=== PATIENT | male | born 1965 | race American Indian/Alaskan Native ===

== ENCOUNTER 2017-05-03 07:18 | Inpatient (IN) | payer BC ==
[2017-05-02 14:51] VITALS: BMI 37.8
[2017-05-03] MEDS ORDERED: Propofol 10 mg/ml Inj (20 ML) ONE ×2 (08:03→11:43)
[2017-05-03] MEDS ORDERED: Midazolam 2 MG/2 ML VIAL ONE (08:03)
[2017-05-03] MEDS ORDERED: ePHEDrine 50 mg/ml Inj ONE (08:04)
[2017-05-03] MEDS ORDERED: Rocuronium 10 mg/ml (5 ml) ONE ×2 (08:04→10:55)
[2017-05-03] MEDS ORDERED: Succinylcholine 200 mg/10 ml Inj IV ONE (08:04)
[2017-05-03] MEDS ORDERED: Lidocaine 1% Inj (20ml) ONE (08:16)
[2017-05-03] MEDS ORDERED: Sevoflurane - Inhalation Anesthetic Liq (250 ml) ONE (08:16)
[2017-05-03] MEDS ORDERED: Bupivacaine 0.5% Inj(30mL) ONE (08:16)
[2017-05-03] MEDS ORDERED: Morphine 1 mg/ml preservative-free Inj(Duramorph) ONE ×2 (08:28→09:11)
[2017-05-03] MEDS ORDERED: Sodium Chloride 0.9% 0 ML IV ONE (08:29)
[2017-05-03] MEDS ORDERED: Absorbable Gelatin Sponge Size 100 ONE (08:29)
[2017-05-03] MEDS ORDERED: EPINEPHrine 1 mg/ml (1:1000) Inj ONE (08:29)
[2017-05-03] MEDS ORDERED: Lactated Ringer's 1,000 ML IV ONE (09:12)
[2017-05-03] MEDS ORDERED: Desflurane Inhalation Anesthetic Liq (240 ml) ONE (10:08)
[2017-05-03] MEDS ORDERED: Ketamine 50 mg/ml Inj (10 ml) ONE (10:32)
[2017-05-03] MEDS: Sodium Chloride 0.9% 1,000 ML IV ONE ×4 (12:00→18:31)
[2017-05-03] MEDS ORDERED: Sodium Chloride 0.9% 1,000 ML IV ONE ×18 (12:00→13:00)
[2017-05-03] MEDS ORDERED: Neostigmine Methylsulfate 3mg/3ml Syringe IV ONE (12:43)
[2017-05-03] MEDS ORDERED: Neostigmine Methylsulfate 2 MG/2 ML ML IV ONE (12:43)
[2017-05-03] MEDS ORDERED: HYDROmorphone 0.5 mg/0.5 ml ISec ONE (13:49)
[2017-05-03] MEDS ORDERED: Naloxone 0.4 mg/ml Inj (Adult) IVP PRN (13:54)
[2017-05-03] MEDS: HYDROmorphone 0.5 mg/0.5 ml ISec IVP PRN ×5 (13:58→14:45)
--- NOTE | 2017-05-03 15:36 | PCM.SURG1 ---
Surgeon's Initial Post Op Note - Surgeon's Notes Surgeon: Myles Li MD [place] [employer] Agent: TONI [place] Type of Anesthesia: General Endo, Spinal Pre-Operative Diagnosis: Right Hip Osteoarthritis Operative Findings: See op report Post-Operative Diagnosis: Same as pre-op dx Operation Performed: Right Robotic Assisted Total Hip Replacement Specimen/Specimens Removed: Right Hip Femoral head and soft tissue Estimated Blood Loss: EBL {In ML}: 900 Date of Surgery/Procedure: 05/03/17 Time of Surgery/Procedure: 09:30
[2017-05-03] MEDS ORDERED: Oxycodone/Acetaminophen 5/325 mg Tab PO PRN (15:43)
[2017-05-03] MEDS ORDERED: Magnesium Hydroxide Susp 30 ml UD PO PRN (15:46)
--- NOTE | 2017-05-03 16:16 | RAD ---
PROCEDURE: Right Hip Radiographs. HISTORY: post op COMPARISON: Comparison is made to the previous study dated 04/15/2017 FINDINGS: BONES: Status post right hip arthroplasty. The hardware are seen at appropriate position. No evidence of acute fracture or dislocation. JOINTS: Normal. SOFT TISSUES: Normal. OTHER FINDINGS: None. IMPRESSION: Status post right hip arthroplasty
--- NOTE | 2017-05-03 16:46 | OP ---
PROCEDURE DATE: 05/03/2017 ATTENDING PHYSICIAN: Myles Li MD DINKEY OPERATOR: RODY [place] PREOPERATIVE DIAGNOSIS: Right hip osteoarthritis. POSTOPERATIVE DIAGNOSIS: Right hip osteoarthritis. PROCEDURE: Right hip robotic assisted total replacement. ANESTHESIA TYPE: General and spinal. ESTIMATED BLOOD LOSS: 600 mL. IMPLANT SIZES: Yareli, 54 mm cup with a 36 mm neutral liner, size 5 stem with high offset, size 36 mm ceramic head with 0 neck length. COMPLICATIONS: None. HISTORY OF PRESENT ILLNESS: The patient is a 51-year-old male with progressive right hip pain. The x-rays had shown an advanced osteoarthritis with multiple osteophyte formation. I had a detailed discussion with the patient reviewing his history and physical exam and x-ray findings and recommended total hip replacement. I reviewed the risks and benefits of the surgery with the patient in detail. The risks included, but not limited to, bleeding, infection, nerve and vessel damage, continued pain, instability, iatrogenic fracture, dislocations, among others. The patient fully understood the risks and benefits and opted to proceed. DESCRIPTION OF PROCEDURE: On the day of the surgery, the patient was admitted to preop holding area. A laterality sheet was completed confirming the patient ' right hip to be the correct operative site. The patient underwent general with spinal anesthesia. He was given 2 grams of IV Ancef. Afterwards, he was secured on an operating room table in the right lateral decubitus position. The right hip was draped and prepped in a standard sterile manner. First, a timeout was completed confirming the patient's right hip to be the correct operative site. First, we proceeded with the placement of 2 iliac crest pins for registration of the robot. Then, we utilized a standard posterolateral approach using a 10 blade, an incision was made. IT band and fascia was identified and dissected in line with the fibers of Gleuteus sara. The hip was identified. Proper marking was made for the robot. Afterwards, the hip was dislocated. The proposed neck cut was made. The acetabulum was exposed and acetabulum cup was reamed sequentially up to 54 mm using robotic assistance. A multi-hole cup was impacted into the acetabulum socket using the proper positioning and 2 screws were placed for stability. Then afterward, the lining, a 36 mm liner, was impacted. Next, attention was given to the femoral stem. The femoral canal was sequentially broached until a size 5 trial. We placed a high offset neck with a 36 mm standard head. The hip was dislocated and taken through the range of motion and was found to be stable throughout the extreme range of motion without any stability. Next, the hip was dislocated. The trial implants were removed and a Yareli Accolade size 5 stem with high offset was impacted into the femoral canal. Next, a 36 mm ceramic head with 0 neck length was secured onto the trunnion. The hip was relocated and was taken through range of motion, was found to be adequate leg length and stability. Finally, the hip was irrigated using the antibiotic solution and 2 drill holes were made into the greater trochanter to secure the short external rotators. The wound was copiously irrigated. The IT fascia was closed. The skin was brought together using Vicryl sutures. The skin was closed using cedric. Sterile dressing was applied. The patient's postoperative precautions included posterior hip precautions with weightbearing as tolerated and there were no complications of the surgery. Bridget Ramey is a certified physician assistant elementary teacher who was present for the entirety of the case as his participation was crucial in patient positioning during surgery, retraction of critical neurovascular structures and she also aided in proper placement of the implant and successful completion of the surgery. Myles Li MD cc: [id number] TT: 05/03/2017 16:46:09 demond VALENZUELA
[2017-05-03] MEDS ORDERED: ceFAZolin 1 GM in Sodium Chloride 0.9% 100 ML IVPB ONE (17:30)
[2017-05-03] MEDS: oxyCODONE 10 mg ER Tab (oxyCONTIN) PO SCH (22:29)
[2017-05-04] MEDS ORDERED: ceFAZolin 1 GM in Sodium Chloride 0.9% 100 ML IVPB ONE (01:30)
[2017-05-04 06:57] LABS: BASO % 0.2 % (0.0-2.0); HEMATOCRIT 29.5 % (35.0-51.0); LYMPH # 1.5 K/uL (1.0-4.3); LYMPH % 16.8 % (20.0-40.0); MEAN CELL VOLUME 88.5 fl (80.0-94.0); MEAN CORPUSCULAR HEMOGLOBIN 28.7 pg (27.0-31.0); MEAN CORPUSCULAR HGB CONC 32.4 g/dL (33.0-37.0); MEAN PLATELET VOLUME 10.9 fl (7.2-11.7); MONO % 11.8 % (0.0-10.0); NEUT # 6.2 K/uL (1.8-7.0); NEUT % 71.2 % (50.0-75.0); WHITE BLOOD COUNT 8.7 K/uL (4.8-10.8)
[2017-05-04 07:53] LABS: BLOOD UREA NITROGEN 17 mg/dl (9-20); CALCIUM 7.3 mg/dL (8.4-10.2); CARBON DIOXIDE 29 mmol/L (22-30); CHLORIDE 101 mmol/L (98-107); GFR AFRICAN-AMERICAN > 60; GLUCOSE,RANDOM 97 mg/dL (75-110); POTASSIUM 3.8 MMOL/L (3.6-5.0); SODIUM 137 mmol/l (132-148)
--- NOTE | 2017-05-04 08:58 | CP.PCM.PN ---
Subjective - Date & Time of Evaluation Date of Evaluation: 05/04/17 Time of Evaluation: 08:40 - Subjective Subjective: S/P RTHR POD#1 Pt seen and examined at bedside, comfortable in bed Pt c/o mod right hip pain, currently well controlled with SENIOR CYTOGENETICS LABORATORY DIRECTOR pump Pt denies any SOB, chest pain, dizziness, dyspnea, numbness/tingling to RLE Objective - Vital Signs/Intake and Output Vital Signs (last 24 hours): Temp Pulse Resp BP Pulse Ox 99.5 F 83 20 95/63 L 99 05/04/17 07:57 05/04/17 07:57 05/04/17 07:57 05/04/17 07:57 05/04/17 07:57 - Medications Medications: Current Medications Celecoxib (Celebrex) 200 mg PO Q12 [facility] Last Admin: 05/04/17 08:39 Dose: 200 mg Docusate Sodium (Colace) 100 mg PO TID [facility] Last Admin: 05/04/17 08:40 Dose: 100 mg Enoxaparin Sodium (Lovenox) 30 mg SC Q12 [facility] PRN Reason: Protocol Famotidine (Pepcid) 20 mg PO BID [facility] Last Admin: 05/04/17 08:39 Dose: 20 mg Hydromorphone HCl (Dilaudid 0.2 Mg/Ml [employer]) 0 mg IV PRN PRN; Protocol PRN Reason: Pain, severe (8-10) Last Admin: 05/04/17 08:35 Dose: 6 mg Ketorolac Tromethamine (Toradol) 15 mg IM Q8 [facility] Stop: 05/05/17 23:59 Last Admin: 05/04/17 08:40 Dose: 15 mg Magnesium Hydroxide (Milk Of Magnesia) 30 ml PO DAILY PRN PRN Reason: Constipation Naloxone HCl (Narcan) 0.1 mg IVP Q2M PRN PRN Reason: Shortness of Breath Ondansetron HCl (Zofran Inj) 4 mg IVP Q8 PRN PRN Reason: Nausea/Vomiting Ondansetron HCl (Zofran Odt) 4 mg PO Q8H PRN PRN Reason: Nausea/Vomiting Oxycodone HCl (Oxycontin Extended Release Tab) 10 mg PO Q12 [facility] Stop: 05/17/17 21:01 Last Admin: 05/03/17 22:29 Dose: 10 mg Oxycodone/Acetaminophen (Percocet 5/325 Mg Tab) 1 tab PO Q4 PRN PRN Reason: pain 4-6 Stop: 05/06/17 15:44 - Labs Labs: 05/04/17 05:20 05/04/17 05:20 - Constitutional Appears: Well, No Acute Distress - Respiratory Exam Respiratory Exam: Clear to Ausculation Bilateral, NORMAL BREATHING PATTERN - Cardiovascular Exam Cardiovascular Exam: REGULAR RHYTHM, RRR - Extremities Exam Additional comments: RLE: Hip dressing C/D/I Abduction pillow in place Calves soft and nontender b/l N/V intact distally Normal ROM at ankle, no foot drop Distal pulses wnl Assessment and Plan - Assessment and Plan (Free Text) Assessment: 51 yo M s/p RTHR POD#1 Plan: S/P RTHR POD#1 DVT ppx, continue lovenox 30mg SC Q12 SCD b/l LE Pain control PT/OT- WBAT RLE Incentive Spirometer F/U daily labs- h/h stable Discussed with Dr. Li
[2017-05-04] MEDS: oxyCODONE 10 mg ER Tab (oxyCONTIN) PO SCH ×2 (09:07→21:01)
--- NOTE | 2017-05-04 12:23 | CP.PCM.HP ---
<BlankenshipRamiro - Last Filed: 05/04/17 12:18> History of Present Illness - History of Present Illness History of Present Illness: 51 year old male w/ PMHx of Gastric Bypass Surgery admitted after right total hip replacement. Patient seen and evaluated at bedside with attending. Patient is POD #1. No acute events overnight. MEDICAL SERVICES ASSISTANT pump being used. No flatus/BM yet. Patient states pain is controlled. Tolerating PO well and using IS. No other complaints at this time. Denies fever, chills, sob, chest pain, or abdominal pain. Present on Admission - Present on Admission Any Indicators Present on Admission: No Review of Systems - Review of Systems All systems: reviewed and no additional remarkable complaints except (mentioned in HPI) Past Patient History - Tetanus Immunizations Tetanus Immunization: Unknown - Past Medical History & Family History Past Medical History?: Yes - Past Social History Smoking Status: Never Smoked - CARDIAC Hx Cardiac Disorders: Yes Hx Hypertension: Yes - PULMONARY Hx Respiratory Disorders: No - NEUROLOGICAL Hx Neurological Disorder: No - HEENT Hx HEENT Problems: No - RENAL Hx Chronic Kidney Disease: No - ENDOCRINE/METABOLIC Hx Endocrine Disorders: No - HEMATOLOGICAL/ONCOLOGICAL Hx Blood Disorders: No Hx Blood Transfusions: Yes Hx Blood Transfusion Reaction: No - INTEGUMENTARY Hx Dermatological Problems: No - MUSCULOSKELETAL/RHEUMATOLOGICAL Hx Musculoskeletal Disorders: Yes Hx Arthritis: Yes Hx Back Pain: Yes Hx Osteoarthritis: Yes Other/Comment: LIMIT JOINT MOTION - GASTROINTESTINAL Hx Gastrointestinal Disorders: No - GENITOURINARY/GYNECOLOGICAL Hx Genitourinary Disorders: No - PSYCHIATRIC Hx Emotional Abuse: No Hx Physical Abuse: No - SURGICAL HISTORY Hx Surgeries: Yes Hx Gastric Bypass Surgery: Yes (1999.REVISION [id number]) Other/Comment: INTESTINE SX. SKIN SX - ANESTHESIA Hx Anesthesia: Yes Hx Anesthesia Reactions: No Hx Malignant Hyperthermia: No Has any member of the family had a problem w/ anesthesia?: No Meds Allergies/Adverse Reactions: Allergies Allergy/AdvReac Type Severity Reaction Status Date / Time No Known Allergies Allergy Verified 11/13/15 14:48 Physical Exam - Constitutional Appears: Well, Non-toxic, No Acute Distress - Head Exam Head Exam: ATRAUMATIC, NORMAL INSPECTION, NORMOCEPHALIC - Eye Exam Eye Exam: Normal appearance - Neck Exam Neck exam: Positive for: Normal Inspection - Respiratory Exam Respiratory Exam: Clear to Auscultation Bilateral, NORMAL BREATHING PATTERN - Cardiovascular Exam Cardiovascular Exam: REGULAR RHYTHM, RRR, +S1, +S2 - GI/Abdominal Exam GI & Abdominal Exam: Normal Bowel Sounds, Soft. absent: Tenderness - Extremities Exam Additional comments: right wound dressing cdi. abduction pillow in place - Neurological Exam Neurological exam: Alert, Oriented x3 - Psychiatric Exam Psychiatric exam: Normal Affect, Normal Mood - Skin Skin Exam: Dry, Intact, Normal Color, Warm Results - Vital Signs Recent Vital Signs: Last Vital Signs Temp 99.5 F 05/04/17 07:57 Pulse 84 05/04/17 11:31 Resp 20 05/04/17 07:57 BP 95/63 L 05/04/17 07:57 Pulse Ox 99 05/04/17 11:31 - Labs Result Diagrams: 05/04/17 05:20 05/04/17 05:20 Labs: Laboratory Results - last 24 hr 05/03/17 05/04/17 05/04/17 07:53 05:20 05:20 WBC 8.7 RBC 3.33 L Hgb 9.5 L Hct 29.5 L MCV 88.5 MCH 28.7 MCHC 32.4 L RDW 13.0 Plt Count 115 L MPV 10.9 Neut % (Auto) 71.2 Lymph % (Auto) 16.8 L [place] % (Auto) 11.8 H Eos % (Auto) 0.0 Baso % (Auto) 0.2 Neut # 6.2 Lymph # 1.5 [place] # 1.0 H Eos # 0.0 Baso # 0.0 Sodium 137 Potassium 3.8 Chloride 101 Carbon Dioxide 29 Anion Gap 10 BUN 17 Creatinine 1.1 Est GFR ( Amer) > 60 Est GFR (Non-Af Amer) > 60 Random Glucose 97 Calcium 7.3 L Magnesium Blood Type O POSITIVE Antibody Screen Negative Crossmatch See Detail BBK History Checked No verified bt 05/04/17 09:21 WBC RBC Hgb Hct MCV MCH MCHC RDW Plt Count MPV Neut % (Auto) Lymph % (Auto) [place] % (Auto) Eos % (Auto) Baso % (Auto) Neut # Lymph # [place] # Eos # Baso # Sodium Potassium Chloride Carbon Dioxide Anion Gap BUN Creatinine Est GFR ( Amer) Est GFR (Non-Af Amer) Random Glucose Calcium Magnesium 1.6 Blood Type Antibody Screen Crossmatch BBK History Checked Assessment & Plan (1) Status post total hip replacement, right Assessment and Plan: POD #1 Pain well controlled PT recommendations Ortho on board, appreciate input (Dr. Li) Encouraged IS Monitor BM, treat constipation prn SCDs f/u cbc (9.5 today) Status: Acute <Chauncey Barajas - Last Filed: 05/06/17 21:03> Results - Vital Signs Recent Vital Signs: Last Vital Signs Temp 98.5 F 05/06/17 16:02 Pulse 88 05/06/17 16:02 Resp 18 05/06/17 16:02 BP 102/63 05/06/17 16:02 Pulse Ox 98 05/06/17 16:02 - Labs Result Diagrams: 05/06/17 09:57 05/06/17 05:25 Labs: Laboratory Results - last 24 hr 05/03/17 05/06/17 05/06/17 07:53 05:25 05:25 WBC 8.8 RBC 2.63 L Hgb 7.8 L Hct 23.1 L MCV 87.7 MCH 29.6 MCHC 33.7 RDW 13.0 Plt Count 103 L MPV 11.2 Neut % (Auto) 67.4 Lymph % (Auto) 20.0 [place] % (Auto) 10.9 H Eos % (Auto) 1.3 Baso % (Auto) 0.4 Neut # 5.9 Lymph # 1.8 [place] # 1.0 H Eos # 0.1 Baso # 0.0 Sodium 133 Potassium 4.3 Chloride 98 Carbon Dioxide 29 Anion Gap 10 BUN 19 Creatinine 0.9 Est GFR ( Amer) > 60 Est GFR (Non-Af Amer) > 60 Random Glucose 95 Calcium 7.6 L Blood Type O POSITIVE Antibody Screen Negative Crossmatch See Detail BBK History Checked No verified bt 05/06/17 05/06/17 09:57 12:14 WBC RBC Hgb 7.9 L Hct 24.0 L MCV MCH MCHC RDW Plt Count MPV Neut % (Auto) Lymph % (Auto) [place] % (Auto) Eos % (Auto) Baso % (Auto) Neut # Lymph # [place] # Eos # Baso # Sodium Potassium Chloride Carbon Dioxide Anion Gap BUN Creatinine Est GFR ( Amer) Est GFR (Non-Af Amer) Random Glucose Calcium Blood Type O POSITIVE Antibody Screen Negative Crossmatch See Detail BBK History Checked Patient has bt Assessment & Plan - Assessment and Plan (Free Text) Plan: i was present during evaluation and discussed with Dr Blankenship re plans of care Chauncey Barajas M.D.
[2017-05-04] MEDS: Multivitamin With Minerals Tab PO SCH (12:54)
[2017-05-04] MEDS: HYDROmorphone 0.5 mg/0.5 ml ISec IVP PRN ×2 (14:48→20:02)
[2017-05-04] MEDS: Enoxaparin 30 mg Syringe SC SCH (21:02)
[2017-05-04] MEDS ORDERED: HYDROmorphone 0.5 mg/0.5 ml ISec IVP ONE (22:00)
[2017-05-05] MEDS ORDERED: Oxycodone/Acetaminophen 5/325 mg Tab PO PRN (03:56)
[2017-05-05 06:55] LABS: BASO % 0.1 % (0.0-2.0); EOS % 0.1 % (0.0-4.0); HEMATOCRIT 23.8 % (35.0-51.0); LYMPH # 0.8 K/uL (1.0-4.3); LYMPH % 7.7 % (20.0-40.0); MEAN CELL VOLUME 88.1 fl (80.0-94.0); MEAN CORPUSCULAR HEMOGLOBIN 29.1 pg (27.0-31.0); MEAN PLATELET VOLUME 10.5 fl (7.2-11.7); MONO % 9.5 % (0.0-10.0); NEUT # 8.9 K/uL (1.8-7.0); NEUT % 82.6 % (50.0-75.0); PLATELET COUNT 99 K/uL (130-400); RED CELL DISTRIBUTION WIDTH 12.8 % (11.5-14.5); WHITE BLOOD COUNT 10.7 K/uL (4.8-10.8)
[2017-05-05 07:13] LABS: BLOOD UREA NITROGEN 19 mg/dl (9-20); CALCIUM 7.4 mg/dL (8.4-10.2); CARBON DIOXIDE 29 mmol/L (22-30); CHLORIDE 98 mmol/L (98-107); GFR AFRICAN-AMERICAN > 60; GLUCOSE,RANDOM 121 mg/dL (75-110); POTASSIUM 3.3 MMOL/L (3.6-5.0); SODIUM 135 mmol/l (132-148)
[2017-05-05] MEDS: oxyCODONE 10 mg Immediate Release Tab PO PRN ×4 (08:02→22:37)
--- NOTE | 2017-05-05 08:11 | CP.PCM.CON ---
History of Present Illness - History of Present Illness History of Present Illness: 51 yo man s/p right THR, POD #2, has [id number] pain due to high tolerance from chronic pain history. Patient had been on Suboxone at home, and prior to that multiple other pain medications from multiple abdominal surgeries. His pain post-op had been relatively controlled w/ intrathecal morphine and Dilaudid RECONCILING CLERK on POD #1, but since then it has been more difficult. He didn't respond satisfactorily to Dilaudid 1mg IV, Oxycontin 10mg q12h, and required multiple doses of Ativan. He states that he had been on Methadone before with good effects. Past Patient History - Tetanus Immunizations Tetanus Immunization: Unknown - Past Medical History & Family History Past Medical History?: Yes - Past Social History Smoking Status: Never Smoked - CARDIAC Hx Cardiac Disorders: Yes Hx Hypertension: Yes - PULMONARY Hx Respiratory Disorders: No - NEUROLOGICAL Hx Neurological Disorder: No - HEENT Hx HEENT Problems: No - RENAL Hx Chronic Kidney Disease: No - ENDOCRINE/METABOLIC Hx Endocrine Disorders: No - HEMATOLOGICAL/ONCOLOGICAL Hx Blood Disorders: No Hx Blood Transfusions: Yes Hx Blood Transfusion Reaction: No - INTEGUMENTARY Hx Dermatological Problems: No - MUSCULOSKELETAL/RHEUMATOLOGICAL Hx Musculoskeletal Disorders: Yes Hx Arthritis: Yes Hx Back Pain: Yes Hx Osteoarthritis: Yes Other/Comment: LIMIT JOINT MOTION - GASTROINTESTINAL Hx Gastrointestinal Disorders: No - GENITOURINARY/GYNECOLOGICAL Hx Genitourinary Disorders: No - PSYCHIATRIC Hx Emotional Abuse: No Hx Physical Abuse: No - SURGICAL HISTORY Hx Surgeries: Yes Hx Gastric Bypass Surgery: Yes (1999.REVISION [id number]) Other/Comment: INTESTINE SX. SKIN SX - ANESTHESIA Hx Anesthesia: Yes Hx Anesthesia Reactions: No Hx Malignant Hyperthermia: No Has any member of the family had a problem w/ anesthesia?: No Meds Allergies/Adverse Reactions: Allergies Allergy/AdvReac Type Severity Reaction Status Date / Time No Known Allergies Allergy Verified 11/13/15 14:48 - Medications Medications: Current Medications Calcium Carbonate (Oscal) 500 mg PO DAILY [facility] Last Admin: 05/04/17 12:54 Dose: 500 mg Celecoxib (Celebrex) 200 mg PO Q12 [facility] Last Admin: 05/04/17 21:02 Dose: 200 mg Cholecalciferol (Vitamin D) 2,000 iu PO DAILY [facility] Last Admin: 05/04/17 12:54 Dose: 2,000 iu Docusate Sodium (Colace) 100 mg PO TID [facility] Last Admin: 05/04/17 16:57 Dose: 100 mg Enoxaparin Sodium (Lovenox) 30 mg SC Q12 [facility] PRN Reason: Protocol Last Admin: 05/04/17 21:02 Dose: 30 mg Famotidine (Pepcid) 20 mg PO BID [facility] Last Admin: 05/04/17 16:57 Dose: 20 mg Ferrous Sulfate (Feosol) 325 mg PO BID [facility] Last Admin: 05/04/17 16:57 Dose: 325 mg Hydromorphone HCl (Dilaudid) 1 mg IVP Q3H PRN PRN Reason: Pain, severe (8-10) Last Admin: 05/05/17 03:18 Dose: 1 mg Ketorolac Tromethamine (Toradol) 15 mg IM Q8 [facility] Stop: 05/05/17 23:59 Last Admin: 05/05/17 08:04 Dose: 15 mg Magnesium Hydroxide (Milk Of Magnesia) 30 ml PO DAILY PRN PRN Reason: Constipation Magnesium Oxide (Mag-Ox) 200 mg PO DAILY [facility] Methadone HCl (Methadone) 10 mg PO Q12 [facility] Multivitamins/Minerals (Therapeutic-M Tab) 1 tab PO DAILY [facility] Last Admin: 05/04/17 12:54 Dose: 1 tab Naloxone HCl (Narcan) 0.1 mg IVP Q2M PRN PRN Reason: Shortness of Breath Ondansetron HCl (Zofran Inj) 4 mg IVP Q8 PRN PRN Reason: Nausea/Vomiting Ondansetron HCl (Zofran Odt) 4 mg PO Q8H PRN PRN Reason: Nausea/Vomiting Oxycodone HCl (Oxycodone Immediate Release Tab) 10 mg PO Q4 PRN PRN Reason: Pain, severe (8-10) Last Admin: 05/05/17 08:02 Dose: 10 mg Physical Exam - Respiratory Exam Respiratory Exam: NORMAL BREATHING PATTERN - Cardiovascular Exam Cardiovascular Exam: REGULAR RHYTHM - Extremities Exam Additional comments: Right hip dressing intact. Results - Vital Signs Recent Vital Signs: Last Vital Signs Temp 99.4 F 05/05/17 08:06 Pulse 103 H 05/05/17 08:06 Resp 20 05/05/17 08:06 BP 120/72 05/05/17 08:06 Pulse Ox 95 05/05/17 08:06 - Labs Result Diagrams: 05/05/17 06:40 05/05/17 06:40 Labs: Laboratory Results - last 24 hr 05/04/17 05/05/17 05/05/17 09:21 06:40 06:40 WBC 10.7 RBC 2.70 L Hgb 7.8 L Hct 23.8 L MCV 88.1 MCH 29.1 MCHC 33.0 RDW 12.8 Plt Count 99 L MPV 10.5 Neut % (Auto) 82.6 H Lymph % (Auto) 7.7 L [place] % (Auto) 9.5 Eos % (Auto) 0.1 Baso % (Auto) 0.1 Neut # 8.9 H Lymph # 0.8 L [place] # 1.0 H Eos # 0.0 Baso # 0.0 Sodium 135 Potassium 3.3 L Chloride 98 Carbon Dioxide 29 Anion Gap 11 BUN 19 Creatinine 1.0 Est GFR ( Amer) > 60 Est GFR (Non-Af Amer) > 60 Random Glucose 121 H Calcium 7.4 L Magnesium 1.6 Assessment & Plan (1) Status post total hip replacement, right Assessment and Plan: 51 yo man w/ chronic pain s/p right THR. - d/c Oxycontin, start Methadone 10mg q12h - continue Dilaudid IV, and Oxycodone 10mg PO for breakthrough pain - patient to return to Suboxone upon discharge, he's to coordinate with own pain physician for outpatient follow-up Status: Acute
[2017-05-05] MEDS: Multivitamin With Minerals Tab PO SCH (08:24)
[2017-05-05] MEDS: Magnesium Oxide 400 mg Tab UD PO SCH (08:26)
[2017-05-05] MEDS: Enoxaparin 30 mg Syringe SC SCH ×2 (08:26→20:58)
[2017-05-05 08:57] LABS: NEUTROPHIL 82 % (42-75); TOTAL CELLS COUNTED 100
[2017-05-05 08:58] LABS: LARGE PLATELETS PRESENT
--- NOTE | 2017-05-05 11:03 | CP.PCM.PN ---
<Ramiro Blankenship - Last Filed: 05/05/17 11:00> Subjective - Date & Time of Evaluation Date of Evaluation: 05/05/17 Time of Evaluation: 09:00 - Subjective Subjective: Patient seen and evaluated at bedside with attending. No acute events overnight though patient continues to complain of pain not well controlled with medications. Participating with PT. Tolerating PO well. Previously on pain meds in the past for chronic pain. Objective - Vital Signs/Intake and Output Vital Signs (last 24 hours): Temp Pulse Resp BP Pulse Ox 99.4 F 103 H 20 120/72 95 05/05/17 08:06 05/05/17 08:06 05/05/17 08:06 05/05/17 08:06 05/05/17 08:06 - Medications Medications: Current Medications Acetaminophen (Tylenol 325mg Tab) 650 mg PO Q6 PRN PRN Reason: Fever >100.4 F Calcium Carbonate (Oscal) 500 mg PO DAILY [facility] Last Admin: 05/05/17 08:25 Dose: 500 mg Celecoxib (Celebrex) 200 mg PO Q12 [facility] Last Admin: 05/05/17 08:13 Dose: 200 mg Cholecalciferol (Vitamin D) 2,000 iu PO DAILY [facility] Last Admin: 05/05/17 08:24 Dose: 2,000 iu Docusate Sodium (Colace) 100 mg PO TID [facility] Last Admin: 05/05/17 08:26 Dose: 100 mg Enoxaparin Sodium (Lovenox) 30 mg SC Q12 [facility] PRN Reason: Protocol Last Admin: 05/05/17 08:26 Dose: 30 mg Famotidine (Pepcid) 20 mg PO BID [facility] Last Admin: 05/05/17 08:25 Dose: 20 mg Ferrous Sulfate (Feosol) 325 mg PO BID [facility] Last Admin: 05/05/17 08:26 Dose: 325 mg Hydromorphone HCl (Dilaudid) 1 mg IVP Q3H PRN PRN Reason: Pain, severe (8-10) Last Admin: 05/05/17 03:18 Dose: 1 mg Ketorolac Tromethamine (Toradol) 15 mg IVP Q8 [facility] Stop: 05/07/17 08:59 Magnesium Hydroxide (Milk Of Magnesia) 30 ml PO DAILY PRN PRN Reason: Constipation Magnesium Oxide (Mag-Ox) 200 mg PO DAILY [facility] Last Admin: 05/05/17 08:26 Dose: 200 mg Methadone HCl (Methadone) 10 mg PO Q12 [facility] Last Admin: 05/05/17 08:20 Dose: 10 mg Multivitamins/Minerals (Therapeutic-M Tab) 1 tab PO DAILY [facility] Last Admin: 05/05/17 08:24 Dose: 1 tab Naloxone HCl (Narcan) 0.1 mg IVP Q2M PRN PRN Reason: Shortness of Breath Ondansetron HCl (Zofran Inj) 4 mg IVP Q8 PRN PRN Reason: Nausea/Vomiting Ondansetron HCl (Zofran Odt) 4 mg PO Q8H PRN PRN Reason: Nausea/Vomiting Oxycodone HCl (Oxycodone Immediate Release Tab) 10 mg PO Q4 PRN PRN Reason: Pain, severe (8-10) Last Admin: 05/05/17 08:02 Dose: 10 mg Potassium Chloride (K-Dur 20 Meq Er Tab) 40 meq PO DAILY [facility] - Labs Labs: 05/05/17 06:40 05/05/17 06:40 - Constitutional Appears: Non-toxic, In Acute Distress (due to pain) - Head Exam Head Exam: ATRAUMATIC, NORMAL INSPECTION, NORMOCEPHALIC - Eye Exam Eye Exam: Normal appearance - Respiratory Exam Respiratory Exam: Clear to Ausculation Bilateral, NORMAL BREATHING PATTERN - Cardiovascular Exam Cardiovascular Exam: REGULAR RHYTHM, +S1, +S2. absent: Murmur - GI/Abdominal Exam GI & Abdominal Exam: Soft, Normal Bowel Sounds. absent: Tenderness Additional comments: obese - Extremities Exam Extremities Exam: Normal Inspection - Neurological Exam Neurological Exam: Alert, Awake, Oriented x3 - Psychiatric Exam Psychiatric exam: Normal Affect, Normal Mood - Skin Skin Exam: Dry, Normal Color, Warm Assessment and Plan (1) Status post total hip replacement, right Assessment & Plan: POD #2 Pain not well controlled Pain Management consulted, appreciate input PT recommendations Ortho on board, appreciate input (Dr. Li) Encouraged IS Monitor BM, treat constipation prn SCDs Status: Acute (2) Anemia Assessment & Plan: asymptomatic drop from 9.5 -> 7.8 Will transfuse 2 pRBC at this time Continue to monitor Status: Acute <Chauncey Barajas - Last Filed: 05/06/17 21:05> Objective - Vital Signs/Intake and Output Vital Signs (last 24 hours): Temp Pulse Resp BP Pulse Ox 98.5 F 88 18 102/63 98 05/06/17 16:02 05/06/17 16:02 05/06/17 16:02 05/06/17 16:02 05/06/17 16:02 - Medications Medications: Current Medications Acetaminophen (Tylenol 325mg Tab) 650 mg PO Q6 PRN PRN Reason: Fever >100.4 F Last Admin: 05/05/17 11:25 Dose: 650 mg Aspirin (Aspirin) 325 mg PO BID [facility] Calcium Carbonate (Oscal) 500 mg PO DAILY [facility] Last Admin: 05/06/17 09:26 Dose: 500 mg Celecoxib (Celebrex) 200 mg PO Q12 [facility] Last Admin: 05/06/17 09:25 Dose: 200 mg Cholecalciferol (Vitamin D) 2,000 iu PO DAILY [facility] Last Admin: 05/06/17 09:28 Dose: 2,000 iu Docusate Sodium (Colace) 100 mg PO TID [facility] Last Admin: 05/06/17 16:33 Dose: 100 mg Famotidine (Pepcid) 20 mg PO BID [facility] Last Admin: 05/06/17 16:30 Dose: 20 mg Ferrous Sulfate (Feosol) 325 mg PO BID [facility] Last Admin: 05/06/17 16:30 Dose: 325 mg Hydromorphone HCl (Dilaudid) 1 mg IVP Q3H PRN PRN Reason: Pain, severe (8-10) Last Admin: 05/05/17 03:18 Dose: 1 mg Magnesium Hydroxide (Milk Of Magnesia) 30 ml PO DAILY PRN PRN Reason: Constipation Magnesium Oxide (Mag-Ox) 200 mg PO DAILY [facility] Last Admin: 05/06/17 09:26 Dose: 200 mg Methadone HCl (Methadone) 10 mg PO Q12 [facility] Last Admin: 05/06/17 09:16 Dose: 10 mg Multivitamins/Minerals (Therapeutic-M Tab) 1 tab PO DAILY [facility] Last Admin: 05/06/17 16:30 Dose: 1 tab Naloxone HCl (Narcan) 0.1 mg IVP Q2M PRN PRN Reason: Shortness of Breath Ondansetron HCl (Zofran Inj) 4 mg IVP Q8 PRN PRN Reason: Nausea/Vomiting Ondansetron HCl (Zofran Odt) 4 mg PO Q8H PRN PRN Reason: Nausea/Vomiting Oxycodone HCl (Oxycodone Immediate Release Tab) 10 mg PO Q4 PRN PRN Reason: Pain, severe (8-10) Last Admin: 05/06/17 20:33 Dose: 10 mg Potassium Chloride (K-Dur 20 Meq Er Tab) 40 meq PO DAILY [facility] Last Admin: 05/06/17 09:25 Dose: 40 meq - Labs Labs: 05/06/17 09:57 05/06/17 05:25 Assessment and Plan - Assessment and Plan (Free Text) Plan: I was present during evaluation and discussed with Dr Blankenship re plans of care and mgt. Chauncey Barajas M.D.
[2017-05-05] MEDS: Potassium Chloride 20 mEq ER Tab PO SCH (13:11)
--- NOTE | 2017-05-05 13:53 | CP.PCM.PN ---
Subjective - Date & Time of Evaluation Date of Evaluation: 05/05/17 Time of Evaluation: 13:30 - Subjective Subjective: ORTHOPEDIC PROGRESS NOTE FOR DR. LOPEZ: This is a 51 yo male patient seen at bedside today 2 days s/p right robotic assisted total hip replacement. Pt seen resting in the bedside chair at time of visit. Per patient he says he was having a great deal of pain overnight, but the new pain medication is offering him good pain relief. Denies numbness or tingling to the right lower extremity. Denies f/n/v/c/sob/cp says he has been walking with physical therapy. Denies any other problems at this time. Objective - Vital Signs/Intake and Output Vital Signs (last 24 hours): Temp Pulse Resp BP Pulse Ox 99.3 F 103 H 20 120/72 95 05/05/17 11:25 05/05/17 08:06 05/05/17 08:06 05/05/17 08:06 05/05/17 08:06 - Medications Medications: Current Medications Acetaminophen (Tylenol 325mg Tab) 650 mg PO Q6 PRN PRN Reason: Fever >100.4 F Last Admin: 05/05/17 11:25 Dose: 650 mg Calcium Carbonate (Oscal) 500 mg PO DAILY [facility] Last Admin: 05/05/17 08:25 Dose: 500 mg Celecoxib (Celebrex) 200 mg PO Q12 [facility] Last Admin: 05/05/17 08:13 Dose: 200 mg Cholecalciferol (Vitamin D) 2,000 iu PO DAILY [facility] Last Admin: 05/05/17 08:24 Dose: 2,000 iu Docusate Sodium (Colace) 100 mg PO TID [facility] Last Admin: 05/05/17 13:09 Dose: 100 mg Enoxaparin Sodium (Lovenox) 30 mg SC Q12 [facility] PRN Reason: Protocol Last Admin: 05/05/17 08:26 Dose: 30 mg Famotidine (Pepcid) 20 mg PO BID [facility] Last Admin: 05/05/17 08:25 Dose: 20 mg Ferrous Sulfate (Feosol) 325 mg PO BID [facility] Last Admin: 05/05/17 08:26 Dose: 325 mg Hydromorphone HCl (Dilaudid) 1 mg IVP Q3H PRN PRN Reason: Pain, severe (8-10) Last Admin: 05/05/17 03:18 Dose: 1 mg Ketorolac Tromethamine (Toradol) 15 mg IVP Q8 [facility] Stop: 05/07/17 08:59 Last Admin: 05/05/17 13:08 Dose: Not Given Magnesium Hydroxide (Milk Of Magnesia) 30 ml PO DAILY PRN PRN Reason: Constipation Magnesium Oxide (Mag-Ox) 200 mg PO DAILY [facility] Last Admin: 05/05/17 08:26 Dose: 200 mg Methadone HCl (Methadone) 10 mg PO Q12 [facility] Last Admin: 05/05/17 08:20 Dose: 10 mg Multivitamins/Minerals (Therapeutic-M Tab) 1 tab PO DAILY [facility] Last Admin: 05/05/17 08:24 Dose: 1 tab Naloxone HCl (Narcan) 0.1 mg IVP Q2M PRN PRN Reason: Shortness of Breath Ondansetron HCl (Zofran Inj) 4 mg IVP Q8 PRN PRN Reason: Nausea/Vomiting Ondansetron HCl (Zofran Odt) 4 mg PO Q8H PRN PRN Reason: Nausea/Vomiting Oxycodone HCl (Oxycodone Immediate Release Tab) 10 mg PO Q4 PRN PRN Reason: Pain, severe (8-10) Last Admin: 05/05/17 08:02 Dose: 10 mg Potassium Chloride (K-Dur 20 Meq Er Tab) 40 meq PO DAILY [facility] Last Admin: 05/05/17 13:11 Dose: 40 meq - Labs Labs: 05/05/17 06:40 05/05/17 06:40 - Constitutional Appears: Non-toxic, No Acute Distress - Extremities Exam Extremities Exam: absent: Calf Tenderness Additional comments: Right lower extremity focused: Surgical incision to right hip appears c/d/i with no drainage noted, no signs infection Tenderness noted on palpation along surgical incision - Neurological Exam Neurological Exam: Alert, Awake, Oriented x3 - Psychiatric Exam Psychiatric exam: Normal Affect, Normal Mood Assessment and Plan - Assessment and Plan (Free Text) Assessment: 51 yo male pt 2 days s/p right robotic assisted total hip replacement Plan: Pt S&E at bedside Chart, labs, vitals reviewed: afebrile (temp 99.3), no leukocytosis, H/H low ( 7.8/23.8) Currently transfusing 2 units PRBC WBAT to RLE c/w PT DVT prophylaxis Pain meds: oxycodone [address] Cox Abduction pillow Orthopedically stable for d/c to TCU for rehab. Plan discussed in detail with attending Dr. Guillermo Alatorre PGY-1
[2017-05-06] MEDS: oxyCODONE 10 mg Immediate Release Tab PO PRN ×5 (02:40→20:33)
[2017-05-06 07:04] LABS: BLOOD UREA NITROGEN 19 mg/dl (9-20); CALCIUM 7.6 mg/dL (8.4-10.2); CARBON DIOXIDE 29 mmol/L (22-30); CHLORIDE 98 mmol/L (98-107); GFR AFRICAN-AMERICAN > 60; GLUCOSE,RANDOM 95 mg/dL (75-110); POTASSIUM 4.3 MMOL/L (3.6-5.0); SODIUM 133 mmol/l (132-148)
[2017-05-06 07:05] LABS: BASO % 0.4 % (0.0-2.0); EOS # 0.1 K/uL (0.0-0.7); EOS % 1.3 % (0.0-4.0); HEMATOCRIT 23.1 % (35.0-51.0); LYMPH # 1.8 K/uL (1.0-4.3); MEAN CELL VOLUME 87.7 fl (80.0-94.0); MEAN CORPUSCULAR HEMOGLOBIN 29.6 pg (27.0-31.0); MEAN CORPUSCULAR HGB CONC 33.7 g/dL (33.0-37.0); MEAN PLATELET VOLUME 11.2 fl (7.2-11.7); MONO % 10.9 % (0.0-10.0); NEUT # 5.9 K/uL (1.8-7.0); NEUT % 67.4 % (50.0-75.0); NRBC % 0.2 % (0.0-0.0); WHITE BLOOD COUNT 8.8 K/uL (4.8-10.8)
--- NOTE | 2017-05-06 09:19 | CP.PCM.PN ---
Subjective - Date & Time of Evaluation Date of Evaluation: 05/06/17 Time of Evaluation: 09:00 - Subjective Subjective: 51 yo s/p right THR, POD #3. Pain is better controlled on Methadone. There are no new complaints. Objective - Vital Signs/Intake and Output Vital Signs (last 24 hours): Temp Pulse Resp BP Pulse Ox 98.3 F 87 20 112/72 100 05/06/17 07:50 05/06/17 07:50 05/06/17 07:50 05/06/17 07:50 05/06/17 07:50 - Medications Medications: Current Medications Acetaminophen (Tylenol 325mg Tab) 650 mg PO Q6 PRN PRN Reason: Fever >100.4 F Last Admin: 05/05/17 11:25 Dose: 650 mg Calcium Carbonate (Oscal) 500 mg PO DAILY [facility] Last Admin: 05/05/17 08:25 Dose: 500 mg Celecoxib (Celebrex) 200 mg PO Q12 [facility] Last Admin: 05/05/17 20:58 Dose: 200 mg Cholecalciferol (Vitamin D) 2,000 iu PO DAILY [facility] Last Admin: 05/05/17 08:24 Dose: 2,000 iu Docusate Sodium (Colace) 100 mg PO TID [facility] Last Admin: 05/05/17 17:42 Dose: 100 mg Enoxaparin Sodium (Lovenox) 30 mg SC Q12 [facility] PRN Reason: Protocol Last Admin: 05/05/17 20:58 Dose: 30 mg Famotidine (Pepcid) 20 mg PO BID [facility] Last Admin: 05/05/17 17:43 Dose: 20 mg Ferrous Sulfate (Feosol) 325 mg PO BID [facility] Last Admin: 05/05/17 17:43 Dose: 325 mg Hydromorphone HCl (Dilaudid) 1 mg IVP Q3H PRN PRN Reason: Pain, severe (8-10) Last Admin: 05/05/17 03:18 Dose: 1 mg Ketorolac Tromethamine (Toradol) 15 mg IVP Q8 [facility] Stop: 05/07/17 08:59 Last Admin: 05/06/17 00:26 Dose: 15 mg Magnesium Hydroxide (Milk Of Magnesia) 30 ml PO DAILY PRN PRN Reason: Constipation Magnesium Oxide (Mag-Ox) 200 mg PO DAILY [facility] Last Admin: 05/05/17 08:26 Dose: 200 mg Methadone HCl (Methadone) 10 mg PO Q12 [facility] Last Admin: 05/06/17 09:16 Dose: 10 mg Multivitamins/Minerals (Therapeutic-M Tab) 1 tab PO DAILY [facility] Last Admin: 05/05/17 08:24 Dose: 1 tab Naloxone HCl (Narcan) 0.1 mg IVP Q2M PRN PRN Reason: Shortness of Breath Ondansetron HCl (Zofran Inj) 4 mg IVP Q8 PRN PRN Reason: Nausea/Vomiting Ondansetron HCl (Zofran Odt) 4 mg PO Q8H PRN PRN Reason: Nausea/Vomiting Oxycodone HCl (Oxycodone Immediate Release Tab) 10 mg PO Q4 PRN PRN Reason: Pain, severe (8-10) Last Admin: 05/06/17 06:42 Dose: 10 mg Potassium Chloride (K-Dur 20 Meq Er Tab) 40 meq PO DAILY [facility] Last Admin: 05/05/17 13:11 Dose: 40 meq - Labs Labs: 05/06/17 05:25 05/06/17 05:25 - Respiratory Exam Respiratory Exam: Clear to Ausculation Bilateral - Cardiovascular Exam Cardiovascular Exam: REGULAR RHYTHM Assessment and Plan (1) Status post total hip replacement, right Assessment & Plan: 51 yo w/ chronic pain, s/p right THR. For TCU today. - continue Methadone 10mg q12h - continue Oxycodone 10mg q4h PRN - patient to coordinate with own pain physician so he can see her immediately upon discharge Status: Acute
[2017-05-06] MEDS: Potassium Chloride 20 mEq ER Tab PO SCH (09:25)
[2017-05-06] MEDS: Enoxaparin 30 mg Syringe SC SCH (09:26)
[2017-05-06] MEDS: Magnesium Oxide 400 mg Tab UD PO SCH (09:26)
--- NOTE | 2017-05-06 10:29 | PQF ANEMIA ---
This form is a permanent part of the medical record 05/06/17 Dr. Barajas, Please clarify the Type of Anemia if known. Elective Right hip robotic assisted total replacement performed on 05/03/17 with an EBL of 600 ml versus 900 ml. 04/25/17 Outpatient H&H 12.9/ 40.8 05/04/17 Postop H&H: 9.5/29.5--> 7.8/23.1. Received IVF Intra-op and transfusion of PRBC on 05/03 and 05/05. Clarification of your documentation is requested to better reflect the severity of illness and intensity of treatment of your patient. Indicators present [x] Anemia [x] Drop in H&H from []___ to []___ [] Hypotension [] GI Bleed [x] Transfusion(s) [] Acute bleed other sites [] Tachycardia [x] Surgical Procedure Blood Loss (expected not a complication) Other:[] Location in the medical record that reflects the above clinical findings: [] Treatment Provided: [x] PHYSICIAN'S RESPONSE Based on your medical judgment of the clinical indicators outlined above, are you treating this patient for a known or suspected: [] Acute blood loss anemia [] Chronic blood loss anemia [] Acute on Chronic blood loss anemia [] Anemia due to malignancy [] Anemia due to chemotherapy or radiation therapy [] Anemia of Chronic Disease, please specify: [] [] Other, please indicate type of anemia []____ [] If Unable to Determine, please check the box, sign and date. Present On Admission (POA) Indicator: [] Present at the time of admission [] Not present at the time of admission [] Clinically Undetermined In responding to this query, please exercise your independent professional judgment. The fact that a question is asked does not imply that any particular answer is desired or expected. Thank you for your clarification on this documentation. If you have any questions please call:extension [phone] Medical Records Dept * Thank you, Savannah Layton RN CDMP MTDD
--- NOTE | 2017-05-06 10:30 | CP.PCM.PN ---
Subjective - Date & Time of Evaluation Date of Evaluation: 05/06/17 Time of Evaluation: 08:30 - Subjective Subjective: S/P Right robotic assisted total hip replacement Pt seen and examined at bedside, comfortable in bed 2U RBC transfusion yesterday noted Pt c/o mild right hip pain Pt denies any chest pain, SOB, dizziness, tachypnea, N/V/D, numbness/tingling RLE Objective - Vital Signs/Intake and Output Vital Signs (last 24 hours): Temp Pulse Resp BP Pulse Ox 98.3 F 87 20 112/72 100 05/06/17 07:50 05/06/17 07:50 05/06/17 07:50 05/06/17 07:50 05/06/17 07:50 - Medications Medications: Current Medications Acetaminophen (Tylenol 325mg Tab) 650 mg PO Q6 PRN PRN Reason: Fever >100.4 F Last Admin: 05/05/17 11:25 Dose: 650 mg Calcium Carbonate (Oscal) 500 mg PO DAILY [facility] Last Admin: 05/06/17 09:26 Dose: 500 mg Celecoxib (Celebrex) 200 mg PO Q12 [facility] Last Admin: 05/06/17 09:25 Dose: 200 mg Cholecalciferol (Vitamin D) 2,000 iu PO DAILY [facility] Last Admin: 05/06/17 09:28 Dose: 2,000 iu Docusate Sodium (Colace) 100 mg PO TID [facility] Last Admin: 05/06/17 09:25 Dose: 100 mg Enoxaparin Sodium (Lovenox) 30 mg SC Q12 [facility] PRN Reason: Protocol Last Admin: 05/06/17 09:26 Dose: 30 mg Famotidine (Pepcid) 20 mg PO BID [facility] Last Admin: 05/06/17 09:27 Dose: 20 mg Ferrous Sulfate (Feosol) 325 mg PO BID [facility] Last Admin: 05/06/17 09:25 Dose: 325 mg Hydromorphone HCl (Dilaudid) 1 mg IVP Q3H PRN PRN Reason: Pain, severe (8-10) Last Admin: 05/05/17 03:18 Dose: 1 mg Ketorolac Tromethamine (Toradol) 15 mg IVP Q8 [facility] Stop: 05/07/17 08:59 Last Admin: 05/06/17 09:27 Dose: 15 mg Magnesium Hydroxide (Milk Of Magnesia) 30 ml PO DAILY PRN PRN Reason: Constipation Magnesium Oxide (Mag-Ox) 200 mg PO DAILY [facility] Last Admin: 05/06/17 09:26 Dose: 200 mg Methadone HCl (Methadone) 10 mg PO Q12 [facility] Last Admin: 05/06/17 09:16 Dose: 10 mg Multivitamins/Minerals (Therapeutic-M Tab) 1 tab PO DAILY [facility] Last Admin: 05/05/17 08:24 Dose: 1 tab Naloxone HCl (Narcan) 0.1 mg IVP Q2M PRN PRN Reason: Shortness of Breath Ondansetron HCl (Zofran Inj) 4 mg IVP Q8 PRN PRN Reason: Nausea/Vomiting Ondansetron HCl (Zofran Odt) 4 mg PO Q8H PRN PRN Reason: Nausea/Vomiting Oxycodone HCl (Oxycodone Immediate Release Tab) 10 mg PO Q4 PRN PRN Reason: Pain, severe (8-10) Last Admin: 05/06/17 06:42 Dose: 10 mg Potassium Chloride (K-Dur 20 Meq Er Tab) 40 meq PO DAILY [facility] Last Admin: 05/06/17 09:25 Dose: 40 meq - Labs Labs: 05/06/17 09:57 05/06/17 05:25 - Constitutional Appears: Well, No Acute Distress - Respiratory Exam Respiratory Exam: Clear to Ausculation Bilateral, NORMAL BREATHING PATTERN - Cardiovascular Exam Cardiovascular Exam: REGULAR RHYTHM, RRR - Extremities Exam Additional comments: RLE: Hip dressing saturated, incision is intact, dressing changed Calves soft and nontender b/l N/V intact distally Distal pulses wnl Assessment and Plan - Assessment and Plan (Free Text) Assessment: 51 yo M s/p right robotic assisted total hip replacement POD#3 Plan: s/p right robotic assisted total hip replacement POD#3 Pain Control DVT ppx PT/OT Pt was transfused 2 U RBC yesterday for acute blood loss anemia Repeat labs this am reveal h/h remains at 7.8/23.1 Repeat cbc stat F/U labs Dressing changes prn D/C planning for TCU
[2017-05-06] MEDS: Multivitamin With Minerals Tab PO SCH (16:30)
--- NOTE | 2017-05-06 21:08 | CP.PCM.PN ---
Subjective - Date & Time of Evaluation Date of Evaluation: 05/06/17 Time of Evaluation: 11:30 - Subjective Subjective: Patient has less pain. Noted persistently low Hgb despite two units of transfusion. Has no chest pain or SOB Able to do bed mobility and transfers. Objective - Vital Signs/Intake and Output Vital Signs (last 24 hours): Temp Pulse Resp BP Pulse Ox 98.5 F 88 18 102/63 98 05/06/17 16:02 05/06/17 16:02 05/06/17 16:02 05/06/17 16:02 05/06/17 16:02 - Medications Medications: Current Medications Acetaminophen (Tylenol 325mg Tab) 650 mg PO Q6 PRN PRN Reason: Fever >100.4 F Last Admin: 05/05/17 11:25 Dose: 650 mg Aspirin (Aspirin) 325 mg PO BID [facility] Calcium Carbonate (Oscal) 500 mg PO DAILY [facility] Last Admin: 05/06/17 09:26 Dose: 500 mg Celecoxib (Celebrex) 200 mg PO Q12 [facility] Last Admin: 05/06/17 09:25 Dose: 200 mg Cholecalciferol (Vitamin D) 2,000 iu PO DAILY [facility] Last Admin: 05/06/17 09:28 Dose: 2,000 iu Docusate Sodium (Colace) 100 mg PO TID [facility] Last Admin: 05/06/17 16:33 Dose: 100 mg Famotidine (Pepcid) 20 mg PO BID [facility] Last Admin: 05/06/17 16:30 Dose: 20 mg Ferrous Sulfate (Feosol) 325 mg PO BID [facility] Last Admin: 05/06/17 16:30 Dose: 325 mg Hydromorphone HCl (Dilaudid) 1 mg IVP Q3H PRN PRN Reason: Pain, severe (8-10) Last Admin: 05/05/17 03:18 Dose: 1 mg Magnesium Hydroxide (Milk Of Magnesia) 30 ml PO DAILY PRN PRN Reason: Constipation Magnesium Oxide (Mag-Ox) 200 mg PO DAILY [facility] Last Admin: 05/06/17 09:26 Dose: 200 mg Methadone HCl (Methadone) 10 mg PO Q12 [facility] Last Admin: 05/06/17 09:16 Dose: 10 mg Multivitamins/Minerals (Therapeutic-M Tab) 1 tab PO DAILY [facility] Last Admin: 05/06/17 16:30 Dose: 1 tab Naloxone HCl (Narcan) 0.1 mg IVP Q2M PRN PRN Reason: Shortness of Breath Ondansetron HCl (Zofran Inj) 4 mg IVP Q8 PRN PRN Reason: Nausea/Vomiting Ondansetron HCl (Zofran Odt) 4 mg PO Q8H PRN PRN Reason: Nausea/Vomiting Oxycodone HCl (Oxycodone Immediate Release Tab) 10 mg PO Q4 PRN PRN Reason: Pain, severe (8-10) Last Admin: 05/06/17 20:33 Dose: 10 mg Potassium Chloride (K-Dur 20 Meq Er Tab) 40 meq PO DAILY [facility] Last Admin: 05/06/17 09:25 Dose: 40 meq - Labs Labs: 05/06/17 09:57 05/06/17 05:25 - Head Exam Head Exam: NORMAL INSPECTION - Eye Exam Eye Exam: Normal appearance - ENT Exam ENT Exam: Mucous Membranes Moist - Respiratory Exam Respiratory Exam: Clear to Ausculation Bilateral - Cardiovascular Exam Cardiovascular Exam: REGULAR RHYTHM - GI/Abdominal Exam GI & Abdominal Exam: Normal Bowel Sounds - Neurological Exam Neurological Exam: Awake, Oriented x3 Assessment and Plan (1) Gait difficulty Status: Acute (2) Anemia Status: Acute (3) Status post total hip replacement, right Status: Acute - Assessment and Plan (Free Text) Plan: cont meds transfuse two more units' recheck cbc in am. subacute rehab
[2017-05-07] MEDS: oxyCODONE 10 mg Immediate Release Tab PO PRN ×2 (00:54→04:31)
[2017-05-07 05:58] LABS: HEMATOCRIT 27.3 % (35.0-51.0); MEAN CELL VOLUME 88.1 fl (80.0-94.0); MEAN CORPUSCULAR HGB CONC 32.9 g/dL (33.0-37.0); RED CELL DISTRIBUTION WIDTH 13.8 % (11.5-14.5); WHITE BLOOD COUNT 8.3 K/uL (4.8-10.8)
[2017-05-07 06:02] LABS: BLOOD UREA NITROGEN 15 mg/dl (9-20); CALCIUM 8.1 mg/dL (8.4-10.2); CARBON DIOXIDE 29 mmol/L (22-30); CHLORIDE 97 mmol/L (98-107); GFR AFRICAN-AMERICAN > 60; GLUCOSE,RANDOM 96 mg/dL (75-110); POTASSIUM 4.6 MMOL/L (3.6-5.0); SODIUM 136 mmol/l (132-148)
[2017-05-07] MEDS: Multivitamin With Minerals Tab PO SCH (08:23)
[2017-05-07] MEDS: Magnesium Oxide 400 mg Tab UD PO SCH (08:24)
[2017-05-07] MEDS: Potassium Chloride 20 mEq ER Tab PO SCH (08:25)
[2017-05-07 08:34] VITALS: BP 127/70; RESP 20; TEMP 98.3
[2017-05-07 10:52] VITALS: PULSE 83; O2SAT 100
--- NOTE | 2017-05-09 09:56 | CP.PCM.DIS ---
Provider - Provider Date of Admission: 05/03/17 13:45 Attending physician: Chauncey Barajas MD Primary care physician: Lj Thakkar MD Time Spent in preparation of Discharge (in minutes): 30 Diagnosis - Discharge Diagnosis (1) Gait difficulty Status: Acute (2) Anemia Status: Acute (3) Status post total hip replacement, right Status: Acute Hospital Course - Lab Results Lab Results: Most Recent Lab Values WBC 8.3 K/uL (4.8-10.8) 05/07/17 04:45 RBC 3.09 Mil/uL (4.40-5.90) L 05/07/17 04:45 Hgb 9.0 g/dL (12.0-18.0) L 05/07/17 04:45 Hct 27.3 % (35.0-51.0) L 05/07/17 04:45 MCV 88.1 fl (80.0-94.0) 05/07/17 04:45 MCH 29.0 pg (27.0-31.0) 05/07/17 04:45 MCHC 32.9 g/dL (33.0-37.0) L 05/07/17 04:45 RDW 13.8 % (11.5-14.5) 05/07/17 04:45 Plt Count 130 K/uL (130-400) 05/07/17 04:45 MPV 11.2 fl (7.2-11.7) 05/06/17 05:25 Neut % (Auto) 67.4 % (50.0-75.0) 05/06/17 05:25 Lymph % (Auto) 20.0 % (20.0-40.0) 05/06/17 05:25 Rains % (Auto) 10.9 % (0.0-10.0) H 05/06/17 05:25 Eos % (Auto) 1.3 % (0.0-4.0) 05/06/17 05:25 Baso % (Auto) 0.4 % (0.0-2.0) 05/06/17 05:25 Neut # 5.9 K/uL (1.8-7.0) 05/06/17 05:25 Lymph # 1.8 K/uL (1.0-4.3) 05/06/17 05:25 Rains # 1.0 K/uL (0.0-0.8) H 05/06/17 05:25 Eos # 0.1 K/uL (0.0-0.7) 05/06/17 05:25 Baso # 0.0 K/uL (0.0-0.2) 05/06/17 05:25 Neutrophils % (Manual) 82 % (42-75) H 05/05/17 06:40 Band Neutrophils % 1 % (0-2) 05/05/17 06:40 Lymphocytes % (Manual) 8 % (20-50) L 05/05/17 06:40 Monocytes % (Manual) 9 % (0-10) 05/05/17 06:40 Platelet Estimate Decreased (NORMAL) L 05/05/17 06:40 Large Platelets Present 05/05/17 06:40 Hypochromasia (manual) Slight 05/05/17 06:40 Sodium 136 mmol/l (132-148) 05/07/17 04:45 Potassium 4.6 MMOL/L (3.6-5.0) 05/07/17 04:45 Chloride 97 mmol/L (98-107) L 05/07/17 04:45 Carbon Dioxide 29 mmol/L (22-30) 05/07/17 04:45 Anion Gap 15 (10-20) 05/07/17 04:45 BUN 15 mg/dl (9-20) 05/07/17 04:45 Creatinine 0.9 mg/dL (0.8-1.5) 05/07/17 04:45 Est GFR ( Amer) > 60 05/07/17 04:45 Est GFR (Non-Af Amer) > 60 05/07/17 04:45 Random Glucose 96 mg/dL (75-110) 05/07/17 04:45 Calcium 8.1 mg/dL (8.4-10.2) L 05/07/17 04:45 Magnesium 1.6 MG/DL (1.6-2.3) 05/04/17 09:21 Blood Type O POSITIVE 05/06/17 12:14 Blood Type Confirm O POSITIVE 05/03/17 08:56 Antibody Screen Negative 05/06/17 12:14 Crossmatch See Detail 05/06/17 12:14 BBK History Checked Patient has bt 05/06/17 12:14 - Hospital Course Hospital Course: This is a 51 y/o male with hx of chronic right hip pain had THR . He had anemia prior to surgery but note Hgb to have decreased further post op. He was given 4 units of PRBC. Hgb was stabilized, he was started on Phys therapy and suggested to continue PT in the subacute/ TCU unit hence was was discharged to TCU in stable condition. Discharge Exam - Head Exam Head Exam: NORMAL INSPECTION - Eye Exam Eye Exam: Normal appearance - Respiratory Exam Respiratory Exam: NORMAL BREATHING PATTERN - Cardiovascular Exam Cardiovascular Exam: REGULAR RHYTHM - GI/Abdominal Exam GI & Abdominal Exam: Normal Bowel Sounds - Extremities Exam Additional comments: slight serosanguinous discharge on THR wound. - Neurological Exam Neurological exam: Alert, CN II-XII Intact, Oriented x3 Discharge Plan - Follow Up Plan Condition: GOOD Disposition: REHAB FACILITY/REHAB UNIT Instructions: Total Hip Replacement (DC) Additional Instructions: for subacute rehab. cont painmeds. monitor cbc Referrals: Lj Thakkar MD [Primary Care Provider] -
--- NOTE | 2017-05-09 10:01 | CP.PCM.HP ---
History of Present Illness - History of Present Illness History of Present Illness: This is a 51 y/o male with recent THR admitted for subacute rehab for further PT. He has a hx of gastric bypass. Postoperatively, he developed anemia necessitating blood transfusion. He received 4 units of PRBC. He was always maintained on pain meds. He did very well and transferred to TCU. Present on Admission - Present on Admission Any Indicators Present on Admission: No History of DVT/PE: No History of Uncontrolled Diabetes: No Urinary Catheter: No Decubitus Ulcer Present: No Review of Systems - Musculoskeletal Musculoskeletal: Arthralgias, Limited Range of Motion Past Patient History - Tetanus Immunizations Tetanus Immunization: Unknown - Past Medical History & Family History Past Medical History?: Yes - Past Social History Smoking Status: Never Smoked - CARDIAC Hx Cardiac Disorders: Yes Hx Hypertension: Yes - PULMONARY Hx Respiratory Disorders: No - NEUROLOGICAL Hx Neurological Disorder: No - HEENT Hx HEENT Problems: No - RENAL Hx Chronic Kidney Disease: No - ENDOCRINE/METABOLIC Hx Endocrine Disorders: No - HEMATOLOGICAL/ONCOLOGICAL Hx Blood Disorders: No Hx Blood Transfusions: Yes Hx Blood Transfusion Reaction: No - INTEGUMENTARY Hx Dermatological Problems: No - MUSCULOSKELETAL/RHEUMATOLOGICAL Hx Arthritis: Yes - GASTROINTESTINAL Hx Gastrointestinal Disorders: No - GENITOURINARY/GYNECOLOGICAL Hx Genitourinary Disorders: No - PSYCHIATRIC Hx Emotional Abuse: No Hx Physical Abuse: No - SURGICAL HISTORY Hx Surgeries: Yes Hx Gastric Bypass Surgery: Yes (1999.REVISION [id number]) Other/Comment: INTESTINE SX. SKIN SX - ANESTHESIA Hx Anesthesia: Yes Hx Anesthesia Reactions: No Hx Malignant Hyperthermia: No Has any member of the family had a problem w/ anesthesia?: No Meds Home Medications: Home Medication List Medication Instructions Recorded Confirmed Type Celecoxib [celeBREX] 200 mg PO Q12 cap 05/06/17 Rx Docusate [Colace] 100 mg PO TID cap 05/06/17 Rx Famotidine [Pepcid] 20 mg PO BID tab 05/06/17 Rx Methadone 10 mg PO Q12 #10 tab 05/06/17 Rx oxyCODONE [oxyCODONE Immediate 10 mg PO Q4 PRN #20 tab 05/06/17 Rx Release Tab] Allergies/Adverse Reactions: Allergies Allergy/AdvReac Type Severity Reaction Status Date / Time No Known Allergies Allergy Verified 05/07/17 13:41 Physical Exam - Head Exam Head Exam: NORMAL INSPECTION - Eye Exam Eye Exam: Normal appearance - Respiratory Exam Respiratory Exam: Clear to Auscultation Bilateral - Cardiovascular Exam Cardiovascular Exam: REGULAR RHYTHM - GI/Abdominal Exam GI & Abdominal Exam: Normal Bowel Sounds - Extremities Exam Additional comments: serosanguinous discharge on the right TH wound Results - Vital Signs Recent Vital Signs: Last Vital Signs Temp 98.3 F 05/07/17 08:33 Pulse 83 05/07/17 10:45 Resp 20 05/07/17 08:33 BP 127/70 05/07/17 08:33 Pulse Ox 100 05/07/17 10:45 - Labs Result Diagrams: 05/07/17 04:45 05/07/17 04:45 Assessment & Plan (1) Gait difficulty Status: Acute (2) Anemia Status: Acute (3) Status post total hip replacement, right Status: Acute - Assessment and Plan (Free Text) Plan: Con t paon meds weigh bearingas tolerated monitor cbc cont monitor wound discharge
--- NOTE | 2017-05-09 10:05 | CP.PCM.PN ---
Subjective - Date & Time of Evaluation Date of Evaluation: 05/09/17 Time of Evaluation: 10:04 - Subjective Subjective: Patient remains well. Able to walk with assistive device. Still with some pain and sero sanguinous discharge on the op wound but minimal. pain is tolerated with pain meds. Objective - Vital Signs/Intake and Output Vital Signs (last 24 hours): Temp Pulse Resp BP Pulse Ox 98.3 F 83 20 127/70 100 05/07/17 08:33 05/07/17 10:45 05/07/17 08:33 05/07/17 08:33 05/07/17 10:45 - Labs Labs: 05/07/17 04:45 05/07/17 04:45 - Head Exam Head Exam: NORMAL INSPECTION - Eye Exam Eye Exam: Normal appearance - ENT Exam ENT Exam: Mucous Membranes Moist - Respiratory Exam Respiratory Exam: Clear to Ausculation Bilateral - Cardiovascular Exam Cardiovascular Exam: REGULAR RHYTHM - GI/Abdominal Exam GI & Abdominal Exam: Normal Bowel Sounds - Neurological Exam Neurological Exam: CN II-XII Intact, Oriented x3 Assessment and Plan (1) Gait difficulty Status: Acute (2) Anemia Status: Acute (3) Status post total hip replacement, right Status: Acute - Assessment and Plan (Free Text) Plan: recheck cbc cmp in am cont tx contmeds anne meds.
== END 2017-05-07 13:36 | DRG 470 ==
LOC: H.OPSURG 07:18 → H.MEDSURG1 13:45
PROVIDERS: ADMIT Family Medicine; ATTEND Family Medicine
PROC: 30233N1 Transfusion of Nonautologous Red Blood Cells into Peripheral Vein, Percutaneous Approach (ICD-10-PCS; 2017-05-03)
PROC: 8E0Y0CZ Robotic Assisted Procedure of Lower Extremity, Open Approach (ICD-10-PCS; 2017-05-03)
PROC: 0SR904Z Replacement of Right Hip Joint with Ceramic on Polyethylene Synthetic Substitute, Open Approach (ICD-10-PCS; principal; 2017-05-03 09:00)
DX: M16.11 Unilateral primary osteoarthritis, right hip (principal); Z96.641 Presence of right artificial hip joint; I10 Essential (primary) hypertension; D62 Acute posthemorrhagic anemia; G89.29 Other chronic pain; K59.00 Constipation, unspecified; Z98.84 Bariatric surgery status

== ENCOUNTER 2017-05-06 14:09 | Inpatient (IN) | payer BC ==
[2017-05-07 13:44] VITALS: BMI 37.8
[2017-05-07] MEDS ORDERED: Tuberculin 5 Units/0.1 ml Inj ID ONE (14:04)
[2017-05-07] MEDS ORDERED: oxyCODONE 10 mg Immediate Release Tab PO PRN (14:23)
[2017-05-07] MEDS ORDERED: oxyCODONE 5 mg Immediate Release Tab PO PRN (15:15)
[2017-05-07] MEDS: oxyCODONE 5 mg Immediate Release Tab PO PRN ×2 (18:20→23:56)
[2017-05-07 18:55] VITALS: RESP 20
[2017-05-08] MEDS: Magnesium Hydroxide Susp 30 ml UD PO PRN (03:44)
[2017-05-08] MEDS: oxyCODONE 5 mg Immediate Release Tab PO PRN ×5 (04:15→21:40)
[2017-05-08] MEDS ORDERED: FERROUS SULFATE 325 MG PO SCH (09:00)
[2017-05-08] MEDS: Potassium Chloride 20 mEq ER Tab PO SCH (09:44)
[2017-05-08] MEDS: Magnesium Oxide 400 mg Tab UD PO SCH (10:46)
[2017-05-08] MEDS: Multivitamin With Minerals Tab PO SCH (10:46)
[2017-05-09] MEDS: oxyCODONE 5 mg Immediate Release Tab PO PRN ×6 (03:24→23:37)
[2017-05-09] MEDS: Potassium Chloride 20 mEq ER Tab PO SCH (08:44)
[2017-05-09] MEDS: Magnesium Oxide 400 mg Tab UD PO SCH (08:44)
[2017-05-09] MEDS: Multivitamin With Minerals Tab PO SCH (08:45)
--- NOTE | 2017-05-09 16:14 | CP.PCM.PN ---
Subjective - Date & Time of Evaluation Date of Evaluation: 05/09/17 Time of Evaluation: 15:50 - Subjective Subjective: ORTHOPEDIC PROGRESS NOTE FOR DR. LI: Mr. Morales is a a 51 yo male patient seen at bedside today 6 days s/p right robotic assisted total hip replacement. Patient says he is tired today because he just walked with physical therapy a moment ago. Denies f/n/v/c/sob/cp or chills. Patient states that he was having problems with tape on the skin and to be careful when handing dressings. Denies any other problems at this time. Objective - Vital Signs/Intake and Output Vital Signs (last 24 hours): Temp Pulse Resp BP Pulse Ox 98.1 F 86 20 103/54 L 99 05/09/17 08:15 05/09/17 09:59 05/09/17 08:15 05/09/17 08:15 05/09/17 09:59 - Medications Medications: Current Medications Acetaminophen (Tylenol 325mg Tab) 650 mg PO Q6 PRN PRN Reason: Fever >100.4 F Aspirin (Aspirin) 325 mg PO Q12 [facility] Last Admin: 05/09/17 08:43 Dose: 325 mg Calcium Carbonate (Oscal) 500 mg PO DAILY [facility] Last Admin: 05/09/17 08:45 Dose: 500 mg Celecoxib (Celebrex) 200 mg PO Q12 [facility] Last Admin: 05/09/17 08:43 Dose: 200 mg Cholecalciferol (Vitamin D) 2,000 iu PO DAILY [facility] Last Admin: 05/09/17 08:45 Dose: 2,000 iu Docusate Sodium (Colace) 100 mg PO TID [facility] Last Admin: 05/09/17 12:53 Dose: 100 mg Famotidine (Pepcid) 20 mg PO BID [facility] Last Admin: 05/09/17 08:45 Dose: 20 mg Ferrous Sulfate (Feosol) 325 mg PO BID [facility] Last Admin: 05/09/17 08:44 Dose: 325 mg Magnesium Hydroxide (Milk Of Magnesia) 30 ml PO Q12 PRN PRN Reason: Constipation Last Admin: 05/08/17 03:44 Dose: 30 ml Magnesium Oxide (Mag-Ox) 200 mg PO DAILY [facility] Last Admin: 05/09/17 08:44 Dose: 200 mg Methadone HCl (Methadone) 10 mg PO Q12 [facility] Last Admin: 05/09/17 08:41 Dose: 10 mg Multivitamins/Minerals (Therapeutic-M Tab) 1 tab PO DAILY [facility] Last Admin: 05/09/17 08:45 Dose: 1 tab Ondansetron HCl (Zofran Tab) 8 mg PO Q8 PRN PRN Reason: Nausea/Vomiting Oxycodone HCl (Oxycodone Immediate Release Tab) 15 mg PO Q4 PRN PRN Reason: Pain, severe (8-10) Last Admin: 05/09/17 15:49 Dose: 15 mg Potassium Chloride (K-Dur 20 Meq Er Tab) 20 meq PO DAILY [facility] Last Admin: 05/09/17 08:44 Dose: 20 meq - Constitutional Appears: Well, Non-toxic, No Acute Distress - Extremities Exam Additional comments: Right lower extremity focused: Surgical site located on lateral right hip is C/D/I with no drainage, no erythema, no purulent, or no clinical signs of infection noted. Superficial ulcers noted superior to the surgical site secondary to tape. No drainage, no erythema, no purulent, or no clinical signs of infection noted. Skin is intact and skin edges is co-apted with no cedric backing out. Skin color is normal. Tenderness elicited upon palpation of the surgical site. - Neurological Exam Neurological Exam: Alert, Awake, Oriented x3 - Psychiatric Exam Psychiatric exam: Normal Affect, Normal Mood - Skin Skin Exam: Normal Color Assessment and Plan - Assessment and Plan (Free Text) Assessment: 51 yo male pt 6 days s/p right robotic assisted total hip replacement and healing Plan: Patient was seen, evaluated, and examined Chart, labs, vitals reviewed: H&H stable 08/17.3 WBAT to RLE c/w PT DVT prophylaxis Pain meds: oxycodone [address] Cox Abduction pillow Orthopedically stable for ortho Plan discussed in detail with attending Dr. Li
[2017-05-10] MEDS: oxyCODONE 5 mg Immediate Release Tab PO PRN ×4 (04:22→21:09)
[2017-05-10] MEDS: Potassium Chloride 20 mEq ER Tab PO SCH (08:29)
[2017-05-10] MEDS: Multivitamin With Minerals Tab PO SCH (08:29)
[2017-05-10] MEDS: Magnesium Oxide 400 mg Tab UD PO SCH (08:30)
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
--- NOTE | 2017-05-10 13:07 | PN ---
DATE: 05/10/2017 The patient is a 51-year-old black male resting in bed. No acute complaints at present. PHYSICAL EXAMINATION: VITAL SIGNS: Stable. NECK: Supple. CHEST: Symmetrical. HEART: Sounds S1, S2. ABDOMEN: Benign. EXTREMITIES: No clubbing, cyanosis, or edema. IMPRESSION: Right hip replacement, robotic surgery, history of gait difficulty, hypertension, gastri c bypass. PLAN: Physical, occupational therapy for range of motion, strengthening, transfers, ambulation and g ait training. Continue to monitor skin of the right hip. It is healing with dressing in place. Con pietro with therapy program. Oleg Sanchez MD cc: [phone] TT: 05/10/2017 13:07:35 Confirmation # [id number] Dictation # [id number]
--- NOTE | 2017-05-10 18:02 | CP.PCM.PN ---
Subjective - Date & Time of Evaluation Date of Evaluation: 05/10/17 Time of Evaluation: 16:15 - Subjective Subjective: S/P Right robotic assisted total hip replacement POD#7 Pt seen and examined at bedside, comfortable in bed Pt c/o mild right hip pain, currently well controlled with pain meds Pt denies any SOB, chest pain, N/V/D, numbness/tingling RLE Pt has had BM Objective - Vital Signs/Intake and Output Vital Signs (last 24 hours): Temp Pulse Resp BP Pulse Ox 98.1 F 86 20 137/64 99 05/10/17 17:34 05/10/17 17:34 05/10/17 17:34 05/10/17 17:34 05/10/17 17:34 - Medications Medications: Current Medications Acetaminophen (Tylenol 325mg Tab) 650 mg PO Q6 PRN PRN Reason: Fever >100.4 F Aspirin (Aspirin) 325 mg PO Q12 [facility] Last Admin: 05/10/17 08:38 Dose: 325 mg Calcium Carbonate (Oscal) 500 mg PO DAILY [facility] Last Admin: 05/10/17 08:30 Dose: 500 mg Celecoxib (Celebrex) 200 mg PO Q12 [facility] Last Admin: 05/10/17 08:30 Dose: 200 mg Cholecalciferol (Vitamin D) 2,000 iu PO DAILY [facility] Last Admin: 05/10/17 08:29 Dose: 2,000 iu Docusate Sodium (Colace) 100 mg PO TID [facility] Last Admin: 05/10/17 16:54 Dose: 100 mg Famotidine (Pepcid) 20 mg PO BID [facility] Last Admin: 05/10/17 16:54 Dose: 20 mg Ferrous Sulfate (Feosol) 325 mg PO BID [facility] Last Admin: 05/10/17 16:54 Dose: 325 mg Magnesium Hydroxide (Milk Of Magnesia) 30 ml PO Q12 PRN PRN Reason: Constipation Last Admin: 05/08/17 03:44 Dose: 30 ml Magnesium Oxide (Mag-Ox) 200 mg PO DAILY [facility] Last Admin: 05/10/17 08:30 Dose: 200 mg Methadone HCl (Methadone) 10 mg PO Q12 [facility] Last Admin: 05/10/17 08:31 Dose: 10 mg Multivitamins/Minerals (Therapeutic-M Tab) 1 tab PO DAILY [facility] Last Admin: 06/20/17 08:29 Dose: 1 tab Ondansetron HCl (Zofran Tab) 8 mg PO Q8 PRN PRN Reason: Nausea/Vomiting Oxycodone HCl (Oxycodone Immediate Release Tab) 15 mg PO Q4 PRN PRN Reason: Pain, severe (8-10) Last Admin: 05/10/17 16:53 Dose: 15 mg Potassium Chloride (K-Dur 20 Meq Er Tab) 20 meq PO DAILY [facility] Last Admin: 05/10/17 08:29 Dose: 20 meq - Constitutional Appears: Well, No Acute Distress - Respiratory Exam Respiratory Exam: Clear to Ausculation Bilateral, NORMAL BREATHING PATTERN - Cardiovascular Exam Cardiovascular Exam: REGULAR RHYTHM, RRR - Extremities Exam Additional comments: RLE: Hip wound C/D/I Hip abduction pillow in place Calves soft and nontender b/l N/V intact Distal pulses wnl Assessment and Plan - Assessment and Plan (Free Text) Assessment: 51 yo M s/p right robotic assisted total hip replacement POD#7 Plan: S/P right robotic assisted total hip replacement POD#7 Pain control PT/OT- WBAT RLE DVT ppx Incentive Spirometer Dressing changes prn Continue current management Discussed with Dr. Li
[2017-05-10] MEDS: Magnesium Hydroxide Susp 30 ml UD PO PRN (20:12)
[2017-05-11] MEDS: oxyCODONE 5 mg Immediate Release Tab PO PRN ×6 (00:48→21:44)
[2017-05-11] MEDS: Potassium Chloride 20 mEq ER Tab PO SCH (08:55)
[2017-05-11] MEDS: Magnesium Oxide 400 mg Tab UD PO SCH (08:56)
[2017-05-11] MEDS: Multivitamin With Minerals Tab PO SCH (08:56)
--- NOTE | 2017-05-11 16:41 | CP.PCM.PN ---
Subjective - Date & Time of Evaluation Date of Evaluation: 05/11/17 Time of Evaluation: 11:00 - Subjective Subjective: patient with complaints of right leg pain Objective - Vital Signs/Intake and Output Vital Signs (last 24 hours): Temp Pulse Resp BP Pulse Ox 97.9 F 75 20 111/69 97 05/11/17 16:37 05/11/17 16:37 05/11/17 16:37 05/11/17 16:37 05/11/17 16:37 - Medications Medications: Current Medications Acetaminophen (Tylenol 325mg Tab) 650 mg PO Q6 PRN PRN Reason: Fever >100.4 F Aspirin (Aspirin) 325 mg PO Q12 [facility] Last Admin: 05/11/17 08:54 Dose: 325 mg Calcium Carbonate (Oscal) 500 mg PO DAILY [facility] Last Admin: 05/11/17 08:57 Dose: 500 mg Celecoxib (Celebrex) 200 mg PO Q12 [facility] Last Admin: 05/11/17 08:55 Dose: 200 mg Cholecalciferol (Vitamin D) 2,000 iu PO DAILY [facility] Last Admin: 05/11/17 08:56 Dose: 2,000 iu Diphenhydramine HCl (Benadryl) 25 mg PO HS PRN PRN Reason: Insomnia Last Admin: 05/11/17 00:05 Dose: 25 mg Docusate Sodium (Colace) 100 mg PO TID [facility] Last Admin: 05/11/17 12:30 Dose: 100 mg Famotidine (Pepcid) 20 mg PO BID [facility] Last Admin: 05/11/17 08:56 Dose: 20 mg Ferrous Sulfate (Feosol) 325 mg PO BID [facility] Last Admin: 05/11/17 08:55 Dose: 325 mg Lactulose (Enulose) 20 gm PO BID PRN PRN Reason: Constipation Magnesium Hydroxide (Milk Of Magnesia) 30 ml PO Q12 PRN PRN Reason: Constipation Last Admin: 05/10/17 20:12 Dose: 30 ml Magnesium Oxide (Mag-Ox) 200 mg PO DAILY [facility] Last Admin: 05/11/17 08:56 Dose: 200 mg Methadone HCl (Methadone) 10 mg PO Q12 [facility] Last Admin: 05/11/17 08:54 Dose: 10 mg Multivitamins/Minerals (Therapeutic-M Tab) 1 tab PO DAILY [facility] Last Admin: 05/11/17 08:56 Dose: 1 tab Ondansetron HCl (Zofran Tab) 8 mg PO Q8 PRN PRN Reason: Nausea/Vomiting Oxycodone HCl (Oxycodone Immediate Release Tab) 15 mg PO Q4 PRN PRN Reason: Pain, severe (8-10) Last Admin: 05/11/17 12:26 Dose: 15 mg Potassium Chloride (K-Dur 20 Meq Er Tab) 20 meq PO DAILY [facility] Last Admin: 05/11/17 08:55 Dose: 20 meq - Head Exam Head Exam: ATRAUMATIC, NORMAL INSPECTION, NORMOCEPHALIC - Eye Exam Eye Exam: EOMI, Normal appearance Pupil Exam: NORMAL ACCOMODATION, PERRL - ENT Exam ENT Exam: Mucous Membranes Moist - Respiratory Exam Respiratory Exam: Clear to Ausculation Bilateral, NORMAL BREATHING PATTERN - Cardiovascular Exam Cardiovascular Exam: REGULAR RHYTHM - GI/Abdominal Exam GI & Abdominal Exam: Normal Bowel Sounds - Rectal Exam Rectal Exam: NORMAL INSPECTION - Exam External exam: NORMAL EXTERNAL EXAM - Extremities Exam Extremities Exam: Normal Capillary Refill, Normal Inspection - Neurological Exam Neurological Exam: Alert, Awake, CN II-XII Intact Neuro motor strength exam: Left Upper Extremity: 4, Right Upper Extremity: 4, Left Lower Extremity: 4, Right Lower Extremity: 3 Additional comments: right leg pain, calf tenderness - Psychiatric Exam Psychiatric exam: Normal Affect, Normal Mood - Skin Skin Exam: Dry, Normal Color Assessment and Plan (1) Anemia Status: Acute (2) Gait difficulty Status: Acute (3) Status post total hip replacement, right Assessment & Plan: plan for physical, occupational therapy but at presentt for doppler of the leg, to rule out deep vein thrombosis as patient with right leg pain. monitor skin of the right hip Status: Acute
[2017-05-12] MEDS: oxyCODONE 5 mg Immediate Release Tab PO PRN ×5 (05:08→21:51)
[2017-05-12] MEDS: Multivitamin With Minerals Tab PO SCH (09:20)
[2017-05-12] MEDS: Magnesium Oxide 400 mg Tab UD PO SCH (09:22)
[2017-05-12] MEDS: Potassium Chloride 20 mEq ER Tab PO SCH (09:22)
[2017-05-13] MEDS: oxyCODONE 5 mg Immediate Release Tab PO PRN ×4 (01:56→17:38)
[2017-05-13] MEDS: Potassium Chloride 20 mEq ER Tab PO SCH (09:17)
[2017-05-13] MEDS: Multivitamin With Minerals Tab PO SCH (09:18)
[2017-05-13] MEDS: Magnesium Oxide 400 mg Tab UD PO SCH (09:18)
--- NOTE | 2017-05-13 10:31 | CP.PCM.DIS ---
Provider - Provider Date of Admission: 05/07/17 13:44 Attending physician: Chauncey Barajas MD Primary care physician: Lj Thakkar MD Hospital Course - Hospital Course Hospital Course: This is a 51 y/o male admitted for continuation of phys therapy. H ehad right THR for severe OA. Post op period was uncomplicated except for some pain on the op site and some serosangunous discharge on the wound. He was started on physical therapy and did very well and achieved all the goals. He was noted to have right leg edema but venous US was negative for DVT, Discharge Exam - Head Exam Head Exam: ATRAUMATIC, NORMAL INSPECTION, NORMOCEPHALIC Discharge Plan - Follow Up Plan Condition: GOOD Disposition: HOME/ ROUTINE Referrals: Lj Thakkar MD [Primary Care Provider] -
--- NOTE | 2017-05-13 10:32 | CP.PCM.PN ---
Subjective - Date & Time of Evaluation Date of Evaluation: 05/10/17 Time of Evaluation: 09:00 - Subjective Subjective: Patient feels a lot better Still with some serosanguinous discharge on the right hip wound Has less leg edema Objective - Vital Signs/Intake and Output Vital Signs (last 24 hours): Temp Pulse Resp BP Pulse Ox 98.1 F 83 20 119/75 99 05/13/17 09:26 05/13/17 09:26 05/13/17 09:26 05/13/17 09:26 05/13/17 09:26 - Medications Medications: Current Medications Acetaminophen (Tylenol 325mg Tab) 650 mg PO Q6 PRN PRN Reason: Fever >100.4 F Aspirin (Aspirin) 325 mg PO Q12 [facility] Last Admin: 05/13/17 09:17 Dose: 325 mg Calcium Carbonate (Oscal) 500 mg PO DAILY [facility] Last Admin: 05/13/17 09:17 Dose: 500 mg Celecoxib (Celebrex) 200 mg PO Q12 [facility] Last Admin: 05/13/17 09:19 Dose: 200 mg Cholecalciferol (Vitamin D) 2,000 iu PO DAILY [facility] Last Admin: 05/13/17 09:18 Dose: 2,000 iu Diphenhydramine HCl (Benadryl) 25 mg PO HS PRN PRN Reason: Insomnia Last Admin: 05/13/17 00:20 Dose: 25 mg Docusate Sodium (Colace) 100 mg PO TID [facility] Last Admin: 05/13/17 09:17 Dose: 100 mg Famotidine (Pepcid) 20 mg PO BID [facility] Last Admin: 05/13/17 09:17 Dose: 20 mg Ferrous Sulfate (Feosol) 325 mg PO BID [facility] Last Admin: 05/13/17 09:17 Dose: 325 mg Lactulose (Enulose) 20 gm PO BID PRN PRN Reason: Constipation Last Admin: 05/11/17 16:46 Dose: 20 gm Magnesium Hydroxide (Milk Of Magnesia) 30 ml PO Q12 PRN PRN Reason: Constipation Last Admin: 05/10/17 20:12 Dose: 30 ml Magnesium Oxide (Mag-Ox) 200 mg PO DAILY [facility] Last Admin: 05/13/17 09:18 Dose: 200 mg Methadone HCl (Methadone) 10 mg PO Q12 [facility] Last Admin: 05/13/17 09:18 Dose: 10 mg Multivitamins/Minerals (Therapeutic-M Tab) 1 tab PO DAILY [facility] Last Admin: 05/13/17 09:18 Dose: 1 tab Ondansetron HCl (Zofran Tab) 8 mg PO Q8 PRN PRN Reason: Nausea/Vomiting Oxycodone HCl (Oxycodone Immediate Release Tab) 15 mg PO Q4 PRN PRN Reason: Pain, severe (8-10) Last Admin: 05/13/17 06:11 Dose: 15 mg Potassium Chloride (K-Dur 20 Meq Er Tab) 20 meq PO DAILY [facility] Last Admin: 05/13/17 09:17 Dose: 20 meq
--- NOTE | 2017-05-13 10:33 | CP.PCM.PN ---
Subjective - Date & Time of Evaluation Date of Evaluation: 05/11/17 Time of Evaluation: 10:00 - Subjective Subjective: Patient is doing well with PT Has no chest pain or SOB Has less leg edema. Objective - Vital Signs/Intake and Output Vital Signs (last 24 hours): Temp Pulse Resp BP Pulse Ox 98.1 F 83 20 119/75 99 05/13/17 09:26 05/13/17 09:26 05/13/17 09:26 05/13/17 09:26 05/13/17 09:26 - Medications Medications: Current Medications Acetaminophen (Tylenol 325mg Tab) 650 mg PO Q6 PRN PRN Reason: Fever >100.4 F Aspirin (Aspirin) 325 mg PO Q12 [facility] Last Admin: 05/13/17 09:17 Dose: 325 mg Calcium Carbonate (Oscal) 500 mg PO DAILY [facility] Last Admin: 05/13/17 09:17 Dose: 500 mg Celecoxib (Celebrex) 200 mg PO Q12 [facility] Last Admin: 05/13/17 09:19 Dose: 200 mg Cholecalciferol (Vitamin D) 2,000 iu PO DAILY [facility] Last Admin: 05/13/17 09:18 Dose: 2,000 iu Diphenhydramine HCl (Benadryl) 25 mg PO HS PRN PRN Reason: Insomnia Last Admin: 05/13/17 00:20 Dose: 25 mg Docusate Sodium (Colace) 100 mg PO TID [facility] Last Admin: 05/13/17 09:17 Dose: 100 mg Famotidine (Pepcid) 20 mg PO BID [facility] Last Admin: 05/13/17 09:17 Dose: 20 mg Ferrous Sulfate (Feosol) 325 mg PO BID [facility] Last Admin: 05/13/17 09:17 Dose: 325 mg Lactulose (Enulose) 20 gm PO BID PRN PRN Reason: Constipation Last Admin: 05/11/17 16:46 Dose: 20 gm Magnesium Hydroxide (Milk Of Magnesia) 30 ml PO Q12 PRN PRN Reason: Constipation Last Admin: 05/10/17 20:12 Dose: 30 ml Magnesium Oxide (Mag-Ox) 200 mg PO DAILY [facility] Last Admin: 05/13/17 09:18 Dose: 200 mg Methadone HCl (Methadone) 10 mg PO Q12 [facility] Last Admin: 05/13/17 09:18 Dose: 10 mg Multivitamins/Minerals (Therapeutic-M Tab) 1 tab PO DAILY [facility] Last Admin: 05/13/17 09:18 Dose: 1 tab Ondansetron HCl (Zofran Tab) 8 mg PO Q8 PRN PRN Reason: Nausea/Vomiting Oxycodone HCl (Oxycodone Immediate Release Tab) 15 mg PO Q4 PRN PRN Reason: Pain, severe (8-10) Last Admin: 05/13/17 06:11 Dose: 15 mg Potassium Chloride (K-Dur 20 Meq Er Tab) 20 meq PO DAILY [facility] Last Admin: 05/13/17 09:17 Dose: 20 meq
--- NOTE | 2017-05-13 10:34 | CP.PCM.PN ---
Subjective - Date & Time of Evaluation Date of Evaluation: 05/12/17 Time of Evaluation: 10:33 - Subjective Subjective: Patient remains stable Noted improved ambulation Has less pain on the right hip area. Has less leg edema. Objective - Vital Signs/Intake and Output Vital Signs (last 24 hours): Temp Pulse Resp BP Pulse Ox 98.1 F 83 20 119/75 99 05/13/17 09:26 05/13/17 09:26 05/13/17 09:26 05/13/17 09:26 05/13/17 09:26 - Medications Medications: Current Medications Acetaminophen (Tylenol 325mg Tab) 650 mg PO Q6 PRN PRN Reason: Fever >100.4 F Aspirin (Aspirin) 325 mg PO Q12 [facility] Last Admin: 05/13/17 09:17 Dose: 325 mg Calcium Carbonate (Oscal) 500 mg PO DAILY [facility] Last Admin: 05/13/17 09:17 Dose: 500 mg Celecoxib (Celebrex) 200 mg PO Q12 [facility] Last Admin: 05/13/17 09:19 Dose: 200 mg Cholecalciferol (Vitamin D) 2,000 iu PO DAILY [facility] Last Admin: 05/13/17 09:18 Dose: 2,000 iu Diphenhydramine HCl (Benadryl) 25 mg PO HS PRN PRN Reason: Insomnia Last Admin: 05/13/17 00:20 Dose: 25 mg Docusate Sodium (Colace) 100 mg PO TID [facility] Last Admin: 05/13/17 09:17 Dose: 100 mg Famotidine (Pepcid) 20 mg PO BID [facility] Last Admin: 05/13/17 09:17 Dose: 20 mg Ferrous Sulfate (Feosol) 325 mg PO BID [facility] Last Admin: 05/13/17 09:17 Dose: 325 mg Lactulose (Enulose) 20 gm PO BID PRN PRN Reason: Constipation Last Admin: 05/11/17 16:46 Dose: 20 gm Magnesium Hydroxide (Milk Of Magnesia) 30 ml PO Q12 PRN PRN Reason: Constipation Last Admin: 05/10/17 20:12 Dose: 30 ml Magnesium Oxide (Mag-Ox) 200 mg PO DAILY [facility] Last Admin: 05/13/17 09:18 Dose: 200 mg Methadone HCl (Methadone) 10 mg PO Q12 [facility] Last Admin: 05/13/17 09:18 Dose: 10 mg Multivitamins/Minerals (Therapeutic-M Tab) 1 tab PO DAILY [facility] Last Admin: 05/13/17 09:18 Dose: 1 tab Ondansetron HCl (Zofran Tab) 8 mg PO Q8 PRN PRN Reason: Nausea/Vomiting Oxycodone HCl (Oxycodone Immediate Release Tab) 15 mg PO Q4 PRN PRN Reason: Pain, severe (8-10) Last Admin: 05/13/17 06:11 Dose: 15 mg Potassium Chloride (K-Dur 20 Meq Er Tab) 20 meq PO DAILY [facility] Last Admin: 05/13/17 09:17 Dose: 20 meq
[2017-05-13 16:48] VITALS: BP 113/71; PULSE 80; TEMP 97.9; O2SAT 95
== END 2017-05-13 21:23 | disposition home or self-care (01) | DRG 561 ==
LOC: H.TCU 05-07 13:44
PROVIDERS: ADMIT Family Medicine; ATTEND Family Medicine
PROC: F08Z1ZZ Dressing Techniques Treatment (ICD-10-PCS; principal; 2017-05-07)
PROC: F07Z5ZZ Bed Mobility Treatment (ICD-10-PCS; 2017-05-07)
PROC: F07L6ZZ Therapeutic Exercise Treatment of Musculoskeletal System - Lower Back / Lower Extremity (ICD-10-PCS; 2017-05-07)
PROC: F07Z9ZZ Gait Training/Functional Ambulation Treatment (ICD-10-PCS; 2017-05-07)
DX: Z47.1 Aftercare following joint replacement surgery (principal); I10 Essential (primary) hypertension; Z96.641 Presence of right artificial hip joint; Z98.84 Bariatric surgery status; D64.9 Anemia, unspecified; Z87.891 Personal history of nicotine dependence